=== PATIENT | female | born 1970 | race Caucasian/White ===

== ENCOUNTER 2017-09-28 08:34 | Day surgery (SDC) | payer BC ==
[~2017-09-28 08:34] MED LIST: CEFAZOLIN 1 GM INJ
[2017-09-28 09:23] LABS: ADD MAN DIFF? NO
[2017-09-28 09:24] LABS: BASOPHIL # 0.1 10^3/ul (0.0-0.1); BASOPHILS % 0.9 % (0.0-2.0); EOSINOPHILS # 0.1 10^3/ul (0.0-0.5); EOSINOPHILS % 2.4 % (0.0-7.0); HEMATOCRIT 36.2 % (37.0-47.0); HEMOGLOBIN 11.8 g/dl (12.0-16.0); LYMPHOCYTES # 2.3 10^3/ul (0.8-2.9); MEAN CORPUSCULAR HEMOGLOBIN 29.4 pg (29.0-33.0); MEAN CORPUSCULAR HGB CONC 32.6 g/dl (32.0-37.0); MEAN PLATELET VOLUME 11.8 fl (7.4-10.4); MONOCYTE # 0.4 10^3/ul (0.3-0.9); MONOCYTES % 7.4 % (0.0-11.0); NEUTROPHIL # 2.6 10^3/ul (1.6-7.5); NEUTROPHILS % 47.1 % (39.0-77.0); PLATELET COUNT 251 10^3/UL (140-415); RED BLOOD COUNT 4.02 10^6/ul (4.20-5.40); RED CELL DISTRIBUTION WIDTH 12.9 % (11.5-14.5)
[2017-09-28 09:24] LABS: WHITE BLOOD COUNT 5.5 10^3/ul (4.8-10.8)
[2017-09-28 09:45] LABS: INR 0.93; PARTIAL THROMBOPLASTIN TIME 30.8 Sec (25.0-35.0); PROTIME 12.5 Sec (11.9-14.9)
[2017-09-28] MEDS ORDERED: PROPOFOL 20 ML (11:07)
[2017-09-28] MEDS ORDERED: LIDOCAINE 1% (MDV) 20 ML INJ (11:07)
[2017-09-28] MEDS ORDERED: MIDAZOLAM 1 MG/ML 2 ML INJ (11:07)
[2017-09-28] MEDS ORDERED: ONDANSETRON 4 MG INJ (11:22)
[2017-09-28] MEDS ORDERED: DEXAMETHASONE 4 MG/ML 1 ML INJ (11:23)
[2017-09-28] MEDS ORDERED: FAMOTIDINE 20 MG INJ (11:23)
[2017-09-28] MEDS ORDERED: ACETAMINOPHEN 1000MG/100ML IV 100 ML (11:24)
[2017-09-28] MEDS ORDERED: HYDROmorphONE 1 MG/5 ML IV SYRINGE IV ×2 (12:00)
== END 2017-09-28 14:05 | disposition home or self-care (01) ==
LOC: SDS 08:34
DX: N93.9 Abnormal uterine and vaginal bleeding, unspecified (principal); D25.9 Leiomyoma of uterus, unspecified
CPT/HCPCS: 58558; 84703; 85025; 85610; 85730; 93005